=== PATIENT | female | born 1945 | race Caucasian/White ===

== ENCOUNTER 2017-10-23 10:26 | Emergency (ER) | payer MEDICARE, OTHER ==
[2017-10-23 11:38] LABS: BILIRUBIN,URINE NEGATIVE (NEG); CLARITY,URINE CLEAR; GLUCOSE,URINE NEGATIVE (NEG); NITRITE,URINE NEGATIVE (NEG); PROTEIN,URINE NEGATIVE (NEG-TRACE)
[2017-10-23 11:46] LABS: BARBITURATES NEG (NEG); BENZODIAZEPINES NEG (NEG); CANNABINOIDS NEG (NEG); COCAINE NEG (NEG); METHADONE NEG (NEG); OPIATES NEG (NEG); PHENCYCLIDINE NEG (NEG)
[2017-10-23 11:47] LABS: COLOR,URINE YELLOW
[2017-10-23 11:48] LABS: BACTERIA,URINE MANY /HPF (0-FEW); HYALINE CASTS, URINE MODERATE /HPF; SQUAMOUS EPITHELIAL CELL,UR FEW /LPF
[2017-10-23 11:49] LABS: RBC,URINE OCC /HPF (0-2)
[2017-10-23 11:52] LABS: AMPHETAMINE/METHAMPHETAMINE NEG (NEG); ETHANOL, URINE NEG (NEG)
[2017-10-23 11:53] LABS: ADD MAN DIFF? NO
[2017-10-23 12:00] LABS: BASO % 1 % (0-3); EOS % 1 % (0-3); HEMATOCRIT 33.9 % (36.0-47.0); HEMOGLOBIN 11.4 g/dL (12.0-15.5); LYMPH % 24 % (24-48); MEAN CORPUSCULAR HEMOGLOBIN 35 pg (25-35); MEAN CORPUSCULAR HGB CONC 34 g/dL (31-37); MEAN CORPUSCULAR VOLUME 103 fL (79-100); MONO # 0.4 x10^3/uL (0.0-1.1); MONO % 10 % (0-9); NEUT # 2.6 x10^3uL (1.8-7.7); NEUT % 64 % (31-73); PLATELET COUNT 108 x10^3/uL (140-400); RED CELL DISTRIBUTION WIDTH 14.8 % (11.5-14.5); WHITE BLOOD COUNT 4.1 x10^3/uL (4.0-11.0)
[2017-10-23 12:06] LABS: PROTHROMBIN TIME PATIENT 12.7 SEC (11.7-14.0)
[2017-10-23 12:12] LABS: CHLORIDE 85 mmol/L (98-107); CREATININE 0.8 mg/dL (0.6-1.0); GFR 70.7; LIPASE 184 U/L (73-393); MAGNESIUM 1.1 mg/dL (1.8-2.4); TOTAL PROTEIN 7.2 g/dL (6.4-8.2)
[2017-10-23 12:16] LABS: TROPONINI < 0.017 ng/mL (0.000-0.055)
[2017-10-23 12:18] LABS: ACETAMIN < 2 mcg/ml (10-30); SALIC < 2.8 mg/dL (2.8-20.0)
[2017-10-23 12:18] LABS: THYROID STIM HORMONE (TSH) 9.633 uIU/mL (0.358-3.74)
[2017-10-23 12:19] LABS: NT-PRO BNP 307 pg/mL (0-124)
[2017-10-23 12:19] LABS: CKMB MASS 0.7 ng/mL (0.0-3.6); CREATINE KINASE 69 U/L (26-192)
[2017-10-23 12:27] LABS: ALBUMIN 3.4 g/dL (3.4-5.0); ALBUMIN/GLOBULIN RATIO 0.9 (1.0-1.7); ALK PHOS 164 U/L (46-116); ALT (SGPT) 56 U/L (14-59); ANION GAP 11 (6-14); AST (SGOT) 149 U/L (15-37); BLOOD UREA NITROGEN 8 mg/dL (7-20); BUN/CREATININE RATIO 10 (6-20); CALCIUM 8.9 mg/dL (8.5-10.1); CARBON DIOXIDE 28 mmol/L (21-32); GLUCOSE 135 mg/dL (70-99); SODIUM 124 mmol/L (136-145); TOTAL BILIRUBIN 2.8 mg/dL (0.2-1.0)
[2017-10-23 12:29] LABS: POTASSIUM 2.8 mmol/L (3.5-5.1)
[2017-10-23] MEDS: IV NORMAL SALINE 1000ML BAG 1,000 ML IV ×2 (12:54)
[2017-10-23] MEDS: POTASSIUM CHLORIDE 20 MEQ TABLET.ER. PO ×2 (12:55)
== END 2017-10-23 14:20 | disposition home or self-care (01) ==
LOC: ER 14:20
DX: E87.1 Hypo-osmolality and hyponatremia (principal); E87.6 Hypokalemia; F10.10 Alcohol abuse, uncomplicated; R29.6 Repeated falls; I10 Essential (primary) hypertension; E03.9 Hypothyroidism, unspecified; Z88.0 Allergy status to penicillin; Z88.5 Allergy status to narcotic agent; Z88.8 Allergy status to other drugs, medicaments and biological substances; Z88.1 Allergy status to other antibiotic agents; Z91.041 Radiographic dye allergy status
CPT/HCPCS: 36415; 70450; 71045; 80053; 80307; 80329; 81001; 82553; 83690; 83735; 83880; 84443; 84484; 85025; 85610; 93005; 96360; 99285-25; J7030

== ENCOUNTER → 2018-08-03 | Outpatient (CLI) | payer MEDICARE, OTHER ==
[2017-10-23 14:07] VITALS: BP 108/64
[~2018-08-03] MED LIST: ANAS1TAB47 PO; ASPI-482 PO; CALC-77 PO; CHLO5CAP2 PO; CINN500C2 PO; CYAN10005 PO; FAMO-63 PO; LEVO125T5 PO; LEVO150T5 PO; LEVO175T5 PO; LISI-130 PO; LISI-334 PO; LUTE20TA PO; MELA1TAB13 PO; MULT-246 PO; OMEG-123 PO; OREG1500 PO; PRED20TA PO; TRAZ-85 PO; TRIA1CAP3 PO; TRIA1TAB3
--- NOTE | 2018-08-03 15:23 | KCIC ---
Three-view left wrist dated 08/03/2018. No comparison available. Clinical data indication: Pain after fall. FINDINGS: 3 views left wrist show normal bony alignment. No displaced fracture. Mild degenerative change of the radiocarpal joint with moderate degenerative change of the first carpometacarpal joint and scaphotrapezial joint. No acute osseous or articular abnormality. Slight cortical irregularity of the radial articular surface near the level the radial styloid seen on only one view. IMPRESSION: 1. No evidence of displaced fracture 2. Slight cortical irregularity of the distal radius near the radial styloid seen on only one view. This could be chronic changes or related to a small nondisplaced fracture. Correlate clinically. 3. Degenerative changes as described above Electronically signed by: Joo Borges MD (08/03/2018 3:20 PM) [facility]
== END | disposition home or self-care (01) ==
LOC: KCIC 14:42
PROVIDERS: ATTEND Nurse Practitioner Family
DX: S69.92XA Unspecified injury of left wrist, hand and finger(s), initial encounter (principal); W19.XXXA Unspecified fall, initial encounter; Y93.89 Activity, other specified; Y92.89 Other specified places as the place of occurrence of the external cause; Y99.8 Other external cause status
CPT/HCPCS: 73110

== ENCOUNTER 2021-03-17 00:23 | Emergency (ER) | payer MEDICARE, OTHER ==
[~2021-03-17] VITALS: Ht 157.5 cm; Wt 79.5 kg
[~2021-03-17 00:23] MED LIST changes: +CYAN-25 PO; -CYAN10005 PO; -LISI-334 PO; +LISI20TA18 PO; +TRAZ-118 PO; -TRAZ-85 PO
--- NOTE | 2021-03-17 00:58 | EKG ---
[facility] [address] [place] [address] Test Date: 2021-03-17 Test Time: 00:46:53 Pat Name: NAVA HORAN Department: Room: Gender: F [employer]: : 1945 Requested By: KODY MOLINA Order Number: [id number] Reading MD: Measurements Intervals [place] Rate: 82 P: 184 TN: 212 QRS: 44 QRSD: 84 T: 6 QT: 396 QTc: 466 Interpretive Statements SUPRAVENTRICULAR RHYTHM QRS(T) CONTOUR ABNORMALITY CONSISTENT WITH ANTEROSEPTAL INFARCT AGE UNDETERMINED CONSISTENT WITH INFERIOR INFARCT AGE UNDETERMINED ABNORMAL ECG RI6.02 No previous ECG available for comparison
[2021-03-17 01:28] LABS: BASO % 0 % (0-3); EOS % 1 % (0-3); HEMATOCRIT 43.9 % (36.0-47.0); HEMOGLOBIN 15.3 g/dL (12.0-15.5); LYMPH # 0.8 x10^3/uL (1.0-4.8); LYMPH % 11 % (24-48); MEAN CORPUSCULAR HEMOGLOBIN 35 pg (25-35); MEAN CORPUSCULAR HGB CONC 35 g/dL (31-37); MEAN CORPUSCULAR VOLUME 102 fL (79-100); MONO # 0.8 x10^3/uL (0.0-1.1); MONO % 11 % (0-9); NEUT # 5.6 x10^3/uL (1.8-7.7); NEUT % 77 % (31-73); PLATELET COUNT 167 x10^3/uL (140-400); RED BLOOD COUNT 4.31 x10^6/uL (3.50-5.40); RED CELL DISTRIBUTION WIDTH 14.6 % (11.5-14.5); WHITE BLOOD COUNT 7.3 x10^3/uL (4.0-11.0)
--- NOTE | 2021-03-17 02:02 | PHYS DOC ---
Past Medical History Past Medical History: Cancer, Hypertension, Hypothyroid, Other Additional Past Medical Histor: BREAST CA, alcoholism Past Surgical History: Hysterectomy, Other Additional Past Surgical Histo: right mastectomy Smoking Status: Never Smoker Alcohol Use: Heavy Drug Use: None General Adult EDM: Chief Complaint: SEIZURE HPI: HPI: Patient is a 75 year old female with with past medical history of alcohol abuse presents for evaluation of seizure. Seizure was witnessed by family--- patient apparently had 2 seizures [id number]-[id number] tonic-clonic. Per EMS patient was postictal on their arrival. Patient denies any previous history of seizures. She denies any headache neck pain extremity pain or abdominal pain. Patient has no oral injury she denies any loss of bowel or bladder. Patient denies any previous history of seizures. Patient states last drink was 2300 hrs. On exam she is alert and oriented x4. Review of Systems: Review of Systems: Review of systems: Constitutional symptoms- No fever, no chills. Eyes- No Discharge, No Visual Loss Respiratory symptoms- No shortness of breath, No wheezing, No Dyspnea on Exertion Cardiovascular Systems; No chest pain, No Palpitations, No syncope Gastrointestinal symptoms: NO abdominal pain, no nausea, no vomiting or diarrhea. Genitourinary symptoms: No dysuria. Musculoskeletal symptoms: No back pain No extremity pain. NEUROLOGICAL Symptoms: No headache, no generalized weakness; No focal Weakness positive seizure Skin: No rash. Heart Score: C/O Chest Pain: N/A Risk Factors: Risk Factors: DM, Current or recent (<one month) smoker, HTN, HLP, family history of CAD, obesity. Risk Scores: Score 0 - 3: 2.5% MACE over next 6 weeks - Discharge Home Score 4 - 6: 20.3% MACE over next 6 weeks - Admit for Clinical Observation Score 7 - 10: 72.7% MACE over next 6 weeks - Early Invasive Strategies Allergies: Allergies: Allergies Coded Allergies Type Severity Reaction Last Updated Verified Iodinated Contrast- Oral and IV Dye Allergy Intermediate Nausea and Vomiting 02/13/14 Yes Penicillins Allergy Intermediate Rash 02/13/14 Yes amoxicillin Allergy Intermediate Rash 02/13/14 Yes codeine Allergy Intermediate Hives 02/13/14 Yes iodine Allergy Intermediate 02/13/14 Yes morphine Allergy Intermediate Nausea and Vomiting 02/13/14 Yes nickel Allergy Intermediate Rash 02/13/14 Yes Physical Exam: PE: General: alert, no acute distress. Skin: warm, dry and intact. HENT: bilateral external ears normal, oropharynx moist, nose normal. Head:: Normocephalic, atraumatic. Neck: Trachea midline. Eyes: EOMI, Normal conjunctiva, No drainage CARDIOVASCULAR: Regular rate and rhythm RESPIRATORY: No respiratory distress Back: Full range of motion. Skin: Warm, dry, no erythema, no rash. MUSCULOSKELETAL: Full range of motion of bilateral upper and lower extremities. GASTROINTESTINAL: Abdomen soft without rebound or guarding. NEUROLOGICAL: Alert and noted to person, place and time. No neurological deficits observed Psychiatric: Cooperative. Normal judgment Current Patient Data: Labs: Laboratory Tests Test 03/17/21 01:20 White Blood Count 7.3 x10^3/uL (4.0-11.0) Red Blood Count 4.31 x10^6/uL (3.50-5.40) Hemoglobin 15.3 g/dL (12.0-15.5) Hematocrit 43.9 % (36.0-47.0) Mean Corpuscular Volume 102 fL (79-100) H Mean Corpuscular Hemoglobin 35 pg (25-35) Mean Corpuscular Hemoglobin Concent 35 g/dL (31-37) Red Cell Distribution Width 14.6 % (11.5-14.5) H Platelet Count 167 x10^3/uL (140-400) Neutrophils (%) (Auto) 77 % (31-73) H Lymphocytes (%) (Auto) 11 % (24-48) L Monocytes (%) (Auto) 11 % (0-9) H Eosinophils (%) (Auto) 1 % (0-3) Basophils (%) (Auto) 0 % (0-3) Neutrophils # (Auto) 5.6 x10^3/uL (1.8-7.7) Lymphocytes # (Auto) 0.8 x10^3/uL (1.0-4.8) L Monocytes # (Auto) 0.8 x10^3/uL (0.0-1.1) Eosinophils # (Auto) 0.0 x10^3/uL (0.0-0.7) Basophils # (Auto) 0.0 x10^3/uL (0.0-0.2) Laboratory Tests 03/17/21 01:20 Vital Signs: Vital Signs Date Time Temp Pulse Resp B/P (MAP) Pulse Ox O2 Delivery O2 Flow Rate FiO2 03/17/21 00:37 99.6 87 18 193/91 (125) 94 Room Air 99.6 EKG: EKG: [] Performed at 0046 Rate [address] elevation No ST depression No acute TN Radiology/Procedures: Radiology/Procedures: [] Impression: EXAMINATION: CT HEAD/BRAIN WO (CT HEAD WITHOUT IV CONTRAST) CLINICAL HISTORY: Seizure TECHNIQUE: Serial axial images without IV contrast were obtained from the vertex to the foramen magnum. CT Dose Reduction Employed: One or more of the following individualized dose reduction techniques were utilized for this examination: 1. Automated exposure control 2. Adjustment of the mA and/or kV according to patient size 3. Use of iterative reconstruction technique. COMPARISON: None FINDINGS: Acute Change: No evidence of an acute infarct or other acute parenchymal process. Hemorrhage: No evidence of acute intracranial hemorrhage. Mass Lesion/Mass Effect: No evidence of intracranial mass or extraaxial fluid collection. No significant mass effect. Chronic Change: Scattered patchy foci of hypoattenuation in the supratentorial white matter, nonspecific but likely represents mild microvascular ischemia. Atherosclerotic calcification of the bilateral carotid siphons. Parenchyma: Mild generalized volume loss. Parenchyma otherwise within normal limits for age. Ventricles: Ventricular enlargement concordant with degree of parenchymal volume loss. Paranasal Sinuses and Skull Base: Mild secretions in the right sphenoid sinus with air-fluid level. Diffuse calvarial osteopenia. Soft tissues unremarkable. IMPRESSION: No evidence of acute intracranial abnormality. Course & Med Decision Making: Course & Med Decision Making Pertinent Labs and Imaging studies reviewed. (See chart for details) [] Patient was evaluated for chief complaint. Work-up consisted of laboratory analysis and radiologic imaging. Results reviewed and discussed with patient and family. Patient with a history of alcohol abuse denies a history of seizure. Alcohol level less than 10. Patient without signs of alcohol withdrawal. CT head negative for acute abnormalities. Patient sodium within normal limits. Patient's potassium noted to be under 3.0. Patient potassium was replaced with 40 M EQ's p.o. and 10 M EQ's IV. Dragon Disclaimer: Dragon Disclaimer: This electronic medical record was generated, in whole or in part, using a voice recognition dictation system. Departure Departure Impression: Primary Impression: ETOH abuse Additional Impressions: Seizure Hypokalemia Disposition: HOME / SELF CARE / HOMELESS Condition: STABLE Referrals: JJ AZAR MD (PCP) RHINA TRENT MD Patient Instructions: Alcohol Problems, Hypokalemia, Seizure, Adult Scripts Potassium Chloride (POTASSIUM CHLORIDE ) 20 Meq Tablet.er 20 MEQ PO DAILY for SUPPLEMENT, #10 TAB.SR Prov: KODY MOLINA DO 03/17/21 KODY MOLINA DO Mar 17, 2021 02:02
[2021-03-17 02:09] LABS: ALBUMIN 3.7 g/dL (3.4-5.0); ALBUMIN/GLOBULIN RATIO 0.9 (1.0-1.7); CALCIUM 8.6 mg/dL (8.5-10.1); CREATININE 0.9 mg/dL (0.6-1.0); GFR 61.2; TOTAL BILIRUBIN 1.1 mg/dL (0.2-1.0); TOTAL PROTEIN 7.8 g/dL (6.4-8.2)
[2021-03-17 02:11] LABS: POTASSIUM 2.8 mmol/L (3.5-5.1)
--- NOTE | 2021-03-17 02:21 | RAD ---
EXAMINATION: CT HEAD/BRAIN WO (CT HEAD WITHOUT IV CONTRAST) CLINICAL HISTORY: Seizure TECHNIQUE: Serial axial images without IV contrast were obtained from the vertex to the foramen magnu m. CT Dose Reduction Employed: One or more of the following individualized dose reduction techniques wer e utilized for this examination: 1. Automated exposure control 2. Adjustment of the mA and/or kV ac cording to patient size 3. Use of iterative reconstruction technique. COMPARISON: None FINDINGS: Acute Change: No evidence of an acute infarct or other acute parenchymal process. Hemorrhage: No evidence of acute intracranial hemorrhage. Mass Lesion/Mass Effect: No evidence of intracranial mass or extraaxial fluid collection. No signific ant mass effect. Chronic Change: Scattered patchy foci of hypoattenuation in the supratentorial white matter, nonspeci fic but likely represents mild microvascular ischemia. Atherosclerotic calcification of the bilateral carotid siphons. Parenchyma: Mild generalized volume loss. Parenchyma otherwise within normal limits for age. Ventricles: Ventricular enlargement concordant with degree of parenchymal volume loss. Paranasal Sinuses and Skull Base: Mild secretions in the right sphenoid sinus with air-fluid level. D iffuse calvarial osteopenia. Soft tissues unremarkable. IMPRESSION: No evidence of acute intracranial abnormality. Electronically signed by: Junior Wall DO (03/17/2021 2:18 AM) [facility]
[2021-03-17] MEDS ORDERED: POTA20TA4 PO (02:29)
[2021-03-17] MEDS ORDERED: POTASSIUM CHLORIDE 10MEQ 100 ML IV SCH (02:30)
[2021-03-17] MEDS ORDERED: POTASSIUM CHLORIDE 20 MEQ TABLET.ER. PO ONE (02:30)
[2021-03-17 05:11] VITALS: BP 139/75
== END 2021-03-17 05:36 | disposition home or self-care (01) ==
LOC: ER 00:23
DX: R56.9 Unspecified convulsions (principal); F10.20 Alcohol dependence, uncomplicated; Y90.0 Blood alcohol level of less than 20 mg/100 ml; E87.6 Hypokalemia; I10 Essential (primary) hypertension; E03.9 Hypothyroidism, unspecified
CPT/HCPCS: 36415; 70450; 80053; 85025; 93005; 96365; 99285; G0480; J3480